=== PATIENT | female | born 1955 | race Caucasian/White ===

== ENCOUNTER 2024-05-18 17:45 | Outpatient (CLI) | payer MEDICARE, SELFPAY ==
--- NOTE | ~2024-05-18 | XR_ITS ---
EXAMINATION: XR knee RT 3V DATE: 05/18/2024 18:23 INDICATION: Right knee pain. TECHNIQUE: 3 views of right knee were obtained. COMPARISON: None. FINDINGS: Alignment is normal. No fracture. There is mild tricompartmental osteoarthritis. No knee dakota int effusion. IMPRESSION: 1. Mild right knee osteoarthritis. Reviewed, dictated and finalized at location A.
--- NOTE | ~2024-05-18 | XR_ITS ---
EXAMINATION: XR lumbar spine 2-3V DATE: 05/18/2024 18:23 INDICATION: Low back pain. TECHNIQUE: 3 views of lumbar spine were obtained. COMPARISON: None. FINDINGS: There is 22 degrees levoscoliosis of thoracolumbar spine. There is a transitional segment a t thoracolumbar junction that is designated S1. There is 3 mm retrolisthesis of T12 on L1 and L1 on L 2 and 3 mm anterolisthesis of L4 on L5 and L5 on S1. There is mild chronic anterior wedging of T11 ve rtebral body. There is moderately decreased disc height from T10-T11 through T12-L1 and mildly decrea sed disc height from L1-L2 through L5-S1. There is multilevel severe facet joint osteoarthritis. IMPRESSION: 1. Thoracolumbar levoscoliosis and moderate spondylosis. Reviewed, dictated and finalized at location A.
== END 2024-05-18 17:46 | disposition home or self-care (01) ==
PROVIDERS: PCP Internal Medicine; Visit Provider Internal Medicine
DX: M54.16 Radiculopathy, lumbar region (principal); M43.04 Spondylolysis, thoracic region; M17.11 Unilateral primary osteoarthritis, right knee
CPT/HCPCS: 72100; 73562

== ENCOUNTER 2024-06-03 07:15 | Outpatient (CLI) | payer MEDICARE, SELFPAY ==
--- NOTE | ~2024-06-03 | MR_ITS ---
MRI of the lumbar spine Clinical History: Back pain Technique: Axial T2-weighted images, and sagittal T1-weighted, T2-weighted, and T2 fat-sat images wer e acquired. Findings: There is no fracture of the lumbar spine. There is minimal grade 1 retrolisthesis of L1 ove r L2. No suspicious bone marrow signal abnormality seen. At L1-L2, there is minimal disc bulge and moderate facet arthropathy. There is minimal central canal stenosis. There is moderate right neural foraminal narrowing, and mild left neural foraminal narrowin g. At L2-L3, there is mild disc bulge and advanced facet arthropathy. No central canal stenosis or defin ite neural foraminal narrowing. At L3-L4, there is no significant disc bulge or herniation. There is advanced facet arthropathy. No c entral canal stenosis or neural foraminal narrowing. At L4-L5, there is no disc bulge or herniation. There is facet arthropathy. No central canal stenosis or neural foraminal narrowing. At L5-S1, there is no disc bulge or herniation. No spinal canal stenosis or definite neural foraminal narrowing. Paravertebral soft tissues are unremarkable. Impression: Mild degenerative spondylosis, as above. Reviewed, dictated and finalized at location . Impression: Mild degenerative spondylosis, as above.
== END 2024-06-03 07:16 | disposition home or self-care (01) ==
LOC: CHSIMG 07:17
PROVIDERS: PCP Internal Medicine; Visit Provider Internal Medicine
DX: M51.360 Other intervertebral disc degeneration, lumbar region with discogenic back pain only (principal); M48.07 Spinal stenosis, lumbosacral region; M43.06 Spondylolysis, lumbar region
CPT/HCPCS: 72148

== ENCOUNTER 2024-06-06 12:57 | Outpatient (CLI) | payer MEDICARE, SELFPAY ==
--- NOTE | ~2024-06-06 | XR_ITS ---
XR hip BI wo pelvis 06/06/2024 13:16 Indication: Hip pain Procedure: 2 views each hip Comparison: No prior studies for comparison. Findings: There is mild-moderate osteoarthritis of the hips. There is mild osteitis pubis. Sacral for amen are symmetric. No fracture or traumatic malalignment. Impression: 1: Bilateral mild-moderate osteoarthritis of the hips. Reviewed, dictated and finalized at location B. Impression: 1: Bilateral mild-moderate osteoarthritis of the hips.
== END 2024-06-06 12:58 | disposition home or self-care (01) ==
LOC: CHSIMG 12:59
PROVIDERS: PCP Internal Medicine; Visit Provider Internal Medicine
DX: M54.50 Low back pain, unspecified (principal); M25.552 Pain in left hip; M25.551 Pain in right hip; M16.0 Bilateral primary osteoarthritis of hip
CPT/HCPCS: 73521

== ENCOUNTER 2025-05-26 09:25 | Outpatient (CLI) | payer MEDICARE, SELFPAY ==
--- OUTSIDE RECORDS SUMMARY | 2011-03-20 07:11 | XMS_ITS | Continuity of Care Document ---
Author Organization [facility] Address [address] [address] Phone Care Team Providers Care Cupola Mechanic Name Role Phone Serg Betancur MD Unavailable Unavailable Medications Medication Instructions Dosage Effective Dates (start - stop) Status Comments Lortab 10 mg-500 mg Tab take 1 tablet by oral route every 4 hours as needed for pain - Active Xanax 1 mg Tab take 1 tablet (1MG) by oral route qd prn - Active zolpidem 10 mg Tab take 1 tablet (10MG) by oral route every day at bedtime prn - Active Procedures Procedure Date Office/outpatient Visit, Est Office/outpatient Visit, Est No Charge Subsequent Hospital Care Subsequent Hospital Care Subsequent Hospital Care Subsequent Hospital Care Biopsy Of Kidney Subsequent Hospital Care Subsequent Hospital Care Subsequent Hospital Care Subsequent Hospital Care Subsequent Hospital Care Initial Hospital Care Subsequent Hospital Care Subsequent Hospital Care Subsequent Hospital Care Advance Directives Directive Yes / No Effective Date File Name No Information Encounters Encounter Description Practice Location Reason(s) For Visit Diagnoses Date Provider Providers Copied on Encounter [facility], [address], [place], [address], [place] tel:[phone] [facility] No Information 1 Pipe Ulrich. [facility], [address], [place], [id number] , [place]. tel:[phone] [facility], [address], [place], [address], [place] tel:[phone] [facility] [place] No Information 1 Pipe Ulrich. [address] [place] [address], [address], [place], [place], [id number] , [place]. tel:[phone] Office/outpa tient Visit, Est [facility], [address], [place], [address], [place] tel:[phone] [facility] No Information 1 Pipe Ulrich. [address] [place] [address], [address], [place], [place], [id number] , [place]. tel:[phone] [facility], [address] [place], [place], [address], [place] tel:[phone] [facility] No Information 1 Min Lieberman. [address] [place] [address], [address], [place], [id number] , [place]. tel:[phone] Office/outpa tient Visit, Est [facility], [address], [place], [address], [place] tel:[phone] [facility] No Information 1 Dann Moreau. [address] [place] [address], [address], [place], [place], [id number] , [place]. tel:[phone] [facility], [address] [place], [place], [address], [place] tel:[phone] [facility] No Information 1 Pipe Ulrich. [address] [place] [address], [address], [place], [place], [id number] , [place]. tel:[phone] Referring Provider: Arnold MAYFIELD, [address] [place] [address] [address], [place], [address]. tel:[phone] Subsequent Hospital Care [facility], [address], [address], [place] tel:[phone] [facility] Acute Kidney Failure UnspAcute Kidney Failure Tubular NecrosisHypertensi on/Accelerated MaligDepressive Disorder Nov- 1 Pipe Ulrich. [address] [place] [address], [address], [place], [id number] , [place]. tel:[phone] Referring Provider: Sun Smallwood, [address] [place] [address] [address], [place], [place], [address]. tel:[phone] Subsequent Hospital Care [facility], [address] [place] [address], [address], [place] tel:[phone] [facility] Acute Kidney Failure Tubular NecrosisAnemia Iron DeficiencyAcute Kidney Failure UnspHypertension/A ccelerated MaligThrombocytope niaDehydrationDepr essive Disorder Nov- 1 Bernardo Petty. [address] [place] [address], [address], [place], [id number] , [place]. tel:[phone] Referring Provider: Sun Smallwood, [address] [place] [address] [address], [place], [place], [id number]. tel:[phone] Subsequent Hospital Care [facility], [address] [place] [address], [address], [place] tel:[phone] [facility] Acute Kidney Failure UnspAnemia Iron DeficiencyThromboc ytopeniaDepressive DisorderAcute Kidney Failure Tubular NecrosisHypertensi on/Accelerated Malig Nov- 1 Pipe Ulrich. [address] [place] [address], [address], [place], [address] , [place]. tel:[phone] Referring Provider: Sun Smallwood, [address] [place] [address] [address], [place], [place], [address]. tel:[phone] Subsequent Hospital Care [facility], [address], [place], [address], [place] tel:[phone] [facility] Acute Kidney Failure UnspAcute Kidney Failure Tubular NecrosisHypertensi on/Accelerated MaligDepressive Disorder 1 Pipe Ulrich. [address] [facility], [address], [place], [place], [address] , [place]. tel:[phone] Referring Provider: Sun Smallwood, [address] [place] [address] [address], [place], [place], [address]. tel:[phone] Family History Family Member Type Diagnosis Age At Onset No Information Payers Payer name Insurance type Covered constitution party ID Gurpreet mccabe(s) [facility] [employer] [facility] CI [id number] Social History Type Description Quantity Date Captured Comments Sex Female Smoking Status No Information Chief Complaint And Reason For Visit No Information History Of Present Illness Encounter Date Complaint History Of Prese nt Illness No Information Instructions Date Instruction Additional Infor mation No Information Assessments Type Assessment Date No Information
--- OUTSIDE RECORDS SUMMARY | 2024-04-27 10:00 | XMS_ITS ---
Author Organization [facility] Address [address] [place], [place] [id number] Care Team Providers Care Bag Sewer Name Role Phone SHIRA JONES Unavailable Unavailable WARD EID Unavailable [phone] REASON FOR VISIT *General care Encounters Encounter Location Date Provider Diagnosis [address] [id number] 04/27/2024 WARD EID Plan Of Treatment No Information Progress Notes * Lena PERKINSOB:1955 ([age] yo F)Acc No.[id number]:04/27/2024 Patient: Dana MERCADO Provider: Leroy EID :1955 A ge:68 Y S ex:Female Date:04/27/2024 Address:[address] Subjective: * Chief Complaints: * 1 . *General care. * Medical History: Objective: * Vitals: Assessment: Plan: * Treatment: * Billing Information: * Visit Code: * Procedure Codes: * Electronic signature of NIXON EID DPM on 05/26/2025 at 09:28 AM CDT Sign off status: Pending * Provider: Leroy EID Date: 0 04/27/2024 Generated for Essence dumont/Hayden/eThamzahitting on: 1 09:28 AM CDT
--- NOTE | ~2025-05-26 | MR_ITS ---
EXAMINATION: MR hip RT wo con DATE: 05/26/2025 10:31 INDICATION: Chronic right hip pain TECHNIQUE: Magnetic resonance imaging (MRI) of the right hip was performed without intravenous contrast. Sequences included full-field axial PD-weighted FS FSE and T1-weighted FSE, coronal of the pelvis with PD-weighted FS FSE, small field of view of the right hip with axial PD-weighted FS FSE, sagittal PD- weighted FS FSE and coronal PD weighted FS FSE. Additional radial T1-weighted FGR oriented orthogonal to the acetabular rim were obtained for evaluation of the labrum. COMPARISON: Hip and pelvis radiographs dated 06/06/2024 FINDINGS: Bones/labrum/cartilage: Actually visualized lumbar levocurvature with moderate spondylosis. No fracture, avascular necrosis or pathologic marrow replacing process. Moderate to severe right hip osteoarthritis with posterior and posterior superior predominant nonuniform joint space narrowing with deep chondral ulceration along both the acetabulum and femoral head with underlying subarticular cystlike change at the posterior inferior left acetabulum and subarticular edema-like signal changes at both sides of the superior to posterior superior aspect the joint space. Small marginal osteophytes along the femoral head. Degenerative tearing of the superolateral and posterior right acetabular labrum. The intervening posterior superior right acetabular labrum has been largely replaced by marginal osteophytes along the rim of the acetabulum. There is at least mild to moderate left hip osteoarthritis with likely high-grade chondromalacia with small regions of subarticular edema-like signal change at both sides of the central aspect the joint space and mild subarticular cystlike change at the anterosuperior left acetabulum. Evaluation of the left hip is however more limited on the larger dorkt-yo-cens images. Mild to moderate osteoarthritis at the bilateral sacroiliac joints. Fluid: Likely reactive moderate sized right right and small left hip joint effusions and/or synovitis. No free fluid in the pelvis. Soft tissues: Mild left-sided and moderate right-sided fatty atrophy of the bilateral gluteus minimus muscle bellies. There is mild fatty atrophy of the anterior right gluteus medius muscle belly. Proximal retraction of small portions of the bilateral gluteus medius myotendinous junctions consistent with partial thi ckness tears of the associated distal tendons. The bilateral iliopsoas and proximal hamstring tendons are normal. Small umbilical hernia containing there is fluid or small knuckle of nonobstructed bowel. Limited evaluation of visceral organs of the pelvis is otherwise unremarkable. No pathologically enlarged pelvic/inguinal lymphadenopathy. IMPRESSION: 1. Moderate to severe right hip osteoarthritis with likely chronic labral degeneration and likely reactive moderate sized right hip joint effusion and/or synovitis. 2. Less severe mild to moderate left hip osteoarthritis with small left hip joint effusion and/or synovitis on more limited evaluation on the larger cfpya-bc-mzrg imaging. 3. Partial tears of small portion of the bilateral gluteus medius tendons as evidenced by focal proximal retraction of portions of the myotendinous junctions 4. Small umbilical hernia containing other fluid or small knuckle of nonobstructed small bowel. Reviewed, dictated and finalized at location A. IMPRESSION: 1. Moderate to severe right hip osteoarthritis with likely chronic labral degen eration and likely reactive moderate sized right hip joint effusion and/or syno vitis. 2. Less severe mild to moderate left hip osteoarthritis with small left hip khadar nt effusion and/or synovitis on more limited evaluation on the larger field-of- view imaging. 3. Partial tears of small portion of the bilateral gluteus medius tendons as ev idenced by focal proximal retraction of portions of the myotendinous junctions 4. Small umbilical hernia containing other fluid or small knuckle of nonobstruc nicole small bowel.
--- OUTSIDE RECORDS SUMMARY | 2025-05-26 09:28 | XMS_ITS | Patient Health Record ---
Author Organization [facility] Address [address] [place], [place] [id number] Care Team Providers Care Amphibian Crewmember Name Role Phone SHIRA JONES Unavailable Unavailable Allergies No Known Allergies Reason For Referral No Information Plan Of Treatment No Information Insurance Providers Payer Name Payer Address Payer Phone Subscriber Number Group Number Insured Name Patient Relationship to Insured Coverage Start Date Coverage End Date [employer] [address] [place] [phone] [id number] Dana Glover Self - patient is the insured Medical (General) History Surgical History Surgery Date(Month/Year) Hernia Tubal Ligation
--- OUTSIDE RECORDS SUMMARY | 2025-05-26 09:28 | XMS_ITS | Clinical Summary ---
Author Organization [facility] Address Formerly [facility], [id number] [place] [address] Care Team Providers Care Products Mechanical Design Engineer Name Role Phone James Shirley MD Primary Care Provider [phone] Allergies No known active allergies Medications ondansetron (ZOFRAN-ODT) 4 MG disintegrating tablet Take 1 tablet (4 mg total) by mouth every 8 (eight) hours as needed for Nausea. 20 tablet 2 Active Active Problems Problem Noted Date Diagnosed Date Low back pain 12/01/2023 Immunizations Immunization Administration Dates Next Due Fluzone High Dose - >Age 65 (Prefilled Syringe) 06/15/2023,05/11/2022,05/19/2021 MODERNA COVID-19 (12+) MRNA, LNP-S, PF, 100 MCG/ 0.5 ML DOSE 06/25/2021,09/09/2020,08/12/2020 PFIZER COVID-19 BIVALENT (12 +) mRNA, LNP-S, PF, 30 MCG/0.3 ML DOSE 05/11/2022 Pneumococcal (Prevnar 13) 02/26/2020 Shingrix 10/03/2020,02/26/2020 Tdap (Adacel) 10/12/2017 Zoster (Zostavax) 88897 Unt/0.65Ml 01/22/2017 Social History Tobacco Use Types Packs/Day Years Used Date Smoking Tobacco: Former Cigarettes Smokeless Tobacco: Never Tobacco Cessation:Counseling Given: Not Answered Comments:Patient was a social smoker in [place]. Comments No Sex and Gender Information Value Date Recorded Sex Assigned at Not on file Legal Sex Female 5:45 PM [employer] Gender Identity Not on file Sexual Orientation Not on file Last Filed Vital Signs Vital Sign Reading Time Taken Comments Blood Pressure 171/68 09/29/2022 12:55 PM [employer]QU[employer] Pulse 52 09/29/2022 12:55 PM LIQUID SUGAR [employer]IER Temperature 36.1 C (96.9 F) 09/29/2022 12:55 PM LIQUID SUGAR FORTIFIER Respiratory Rate 18 09/29/2022 12:55 PM LIQUID SUGAR FORTIFIER Oxygen Saturation 100% 09/29/2022 12:55 PM LIQUID SUGAR FORTIFIER Inhaled Oxygen Concentration - - Weight 68.9 kg (152 lb) 09/22/2022 1:49 PM LIQUID SUGAR FORTIFIER Height 154.9 cm (5' 1) 09/22/2022 1:49 PM LIQUID SUGAR FORTIFIER Body Mass Index 28.72 09/22/2022 1:49 PM LIQUID SUGAR FORTIFIER Plan of Treatment Health Maintenance Due Date Last Done Comments Colorectal Cancer Screening Colonoscopy (10 Years) 1955 Hepatitis C 11/27/1973 Annual Medicare Wellness Visit 11/27/2020 Pneumococcal Vaccine: 50+ Years (2 of 2 - PPSV23) 02/25/2021 02/26/2020 COVID-19 Vaccine ( - season) 2025 05/11/2022, 06/25/2021, 09/09/2020, Additional history exists Influenza Adult (#1) 2025 06/15/2023, 05/11/2022, 05/19/2021 Mammogram Screening 12/20/2025 12/21/2023, 10/06/2022, 03/13/2020 DTaP, Tdap and Td Vaccines (2 - Td or Tdap) 10/12/2027 10/12/2017 RSV Immunization or 60+ Years (1 - 1-dose 75+ series) 11/27/2030 Zoster Vaccines Completed 10/03/2020, 02/13, 01/22/2017 Dexa Scan (General) Completed 12/21/2023 Meningococcal B Vaccine Aged Out No l onger eligible based on patient's age to complete this topic Meningococcal Vaccine Aged Out No ana shyam eligible based on patient's age to complete this topic RSV Immunizations Under 20 Months Aged Out No longer eligible based on patient's age to complete this topic Procedures Procedure Name Priority Date/Time Associated Diagnosis Comments MG SCREENING W WAYLON SHADI DIGI Routine 12/21/2023 10:14 AM CDT Visit for screening mammogram BONE DENSITY/DEXA Routine 12/21/2023 10: 03 AM CDT Post-menopause from Last 3 Months or Most Recently Relevant to Health Maintenance Results * MG SCREENING W WAYLON SHADI DIGI (12/21/2023 10:14 AM CDT) Anatomical Region Laterality Modality Breast Bilateral Mammography 12/21/2023 3:48 PM CDT Impressions 12/21/2023 3:49 PM CDT IMPRESSION: No suspicious change since the previous exams. Recommendation: 1: Routine Screening Bilateral in 1 Year Assessment: ACR BI-RADS 2 - BENIGN FINDING(S) Ordered By: JAZZ JONES Interpreted By: Emanuel Aggarwal MD, 12/21/2023 3:48 PM Narrative 12/21/2023 3:49 PM CDT Examination: Digital screening mammogram with CAD. Clinical history: Asymptomatic patient presents for routine screening. Comparison: 10/06/2022, 03/13/2020, 09/29/2018, 03/17/2017. Technique: Bilateral digital mammograms. The exam was interpreted with the use of a computer-aided detection (CAD) system. Additional 3-D tomosynthesis images were acquired. Tissue density: The breast tissue contains scattered fibroglandular densities. Findings: The breast tissue contains scattered fibroglandular densities. Benign-appearing calcification noted. No suspicious mass, microcalcification or area of architectural distortion can be identified. From a mammographic standpoint, routine followup in one year would seem adequate. us Jazz Jones APNP MAMMO Final Resul t * BONE DENSITY/DEXA (12/21/2023 10:03 AM CDT) Anatomical Region Laterality Modality Bone Bone Density 12/21/2023 11:2 1 AM CDT Impressions 12/21/2023 11:23 AM CDT Impression: 1. Within normal limits in the lumbar spine. 2. Consistent with osteopenia in both hips. Ordered By: JAZZ JONES Interpreted By: Emanuel Aggarwal MD, 12/21/2023 11:21 AM Narrative 12/21/2023 11:23 AM CDT Examination: DEXA Bone densitometry Clinical history: Postmenopausal. Osteoporosis screening. Comparison: None. Technique: DEXA bone mineral density evaluation was performed in the AP projection over the lumbar spine and over both hips in the AP projection utilizing standard imaging techniques. Assessment: The BMD measured at the AP spine L1-L4 is 1.201 g/cm2 with a T-score of 1.4 and a Z-score of 3.4. Bone density is up to 10% below young normal. This patient is considered normal according to the World Health Organization (WHO) criteria. Fracture risk is low. The BMD measured at the femur total left is 0.782 g/cm2 with a T-score of -1.3 and a Z-score of 0.1. The patient is considered osteopenic according to World Health Organization (WHO) criteria. Bone density is between 10 and 25% below young normal. Fracture risk is moderate. Treatment is advised. The BMD measured at the femur total right is 0.754 g/cm2 with a T-score of -1.5 and a Z-score of -0.2. The patient is considered osteopenic according to World Health Organization (WHO) criteria. Bone density is between 10 and 25% below young normal. Fracture risk is moderate. Treatment is advised. FRAX 10-year fracture risk: Major Osteoporotic Fracture: 8.0%. Hip Fracture: 0.6%. Recommendations: All patients should ensure an adequate intake of dietary calcium and vitamin D. The NOF recommend adults under the age of 50 need 1000 mg of calcium and 400-800 IU of vitamin D daily. Effective therapy for the prevention and treatment of osteoporosis include biphosphonates. Follow-up: People with diagnosed cases of osteoporosis or at high risk for fracture should have regular bone mineral density test. For patients eligible for Medicare, routine testing is allowed once every 2 years. Testing frequency can be increased to one year for patients who have rapidly progressing disease, those who are receiving or discontinuing medical therapy to restore bone mass, or have additional risk factors. Based on these results, a followup exam is recommended in two years. Procedure Note Emanuel Aggarwal MD - 05/07/2024 Examination: DEXA Bone densitometry Clinical history: Postmenopausal. Osteoporosis screening. Comparison: None. Technique: DEXA bone mineral density evaluation was performed in the APprojection over the lumbar spine and over both hips in the AP projectionutilizing standard imaging techniques. Assessment: The BMD measured at the AP spine L1-L4 is 1.201 g/cm2 with a T-score of1.4 and a Z-score of 3.4. Bone density is up to 10% below young normal.This patient is considered normal according to the World HealthOrganization (WHO) criteria. Fracture risk is low. The BMD measured at the femur total left is 0.782 g/cm2 with a T-score of-1.3 and a Z-score of 0.1. The patient is considered osteopenicaccording to World Health Organization (WHO) criteria. Bone density isbetween 10 and 25% below young normal. Fracture risk is moderate.Treatment is advised. The BMD measured at the femur total right is 0.754 g/cm2 with a T-score of-1.5 and a Z-score of -0.2. The patient is considered osteopenicaccording to World Health Organization (WHO) criteria. Bone density isbetween 10 and 25% below young normal. Fracture risk is moderate.Treatment is advised. FRAX 10-year fracture risk: Major Osteoporotic Fracture: 8.0%. Hip Fracture: 0.6%. Recommendations: All patients should ensure an adequate intake of dietary calcium andvitamin D. The NOF recommend adults under the age of 50 need 1000 mg ofcalcium and 400-800 IU of vitamin D daily. Effective therapy for theprevention and treatment of osteoporosis include biphosphonates. Follow-up: People with diagnosed cases of osteoporosis or at high risk for fractureshould have regular bone mineral density test. For patients eligible forMedicare, routine testing is allowed once every 2 years. Testing frequencycan be increased to one year for patients who have rapidly progressingdisease, those who are receiving or discontinuing medical therapy torestore bone mass, or have additional risk factors. Based on these results, a followup exam is recommended in two years. Impression: 1. Within normal limits in the lumbar spine. 2. Consistent with osteopenia in both hips. Ordered By: JAZZ JONES Interpreted By: Emanuel Aggarwal MD, 12/21/2023 11:21 AM us Jazz MAN Final Resul t from Last 3 Months or Most Recently Relevant to Health Maintenance Insurance [employer] MEDICARE Care Teams Products Mechanical Design Engineer Relationship Specialty Start Date End Date James Shirley MD [address] [place] [phone] PCP - General FAMILY PRACTICE 07/08/22
--- OUTSIDE RECORDS SUMMARY | 2025-05-26 09:28 | XMS_ITS | Clinical Summary ---
Author Organization [facility] Address [address] [place] [address] Care Team Providers Care Manager Retail Sales Name Role Phone Shashi Berry MD Primary Care Provider [phone] Allergies No known active allergies Medications No known medications Active Problems Problem Noted Date Diagnosed Date Tongue mass 05/25/2024 Assessment & Plan (05/25/2024 11:01 AM CDT): Excision of tongue mass with repair Risks and complications: Anesthesia, bleeding, infection, benign versus malignant pathology, recurrence of lesion, injury to arteries, nerves and veins, scarring and need for further treatment Social History Tobacco Use Types Packs/Day Years Used Date Smoking Tobacco: Never Assessed Comments Unknown Sex and Gender Information Value Date Recorded Sex Assigned at Not on file Legal Sex Female 8:18 AM CDT Gender Identity Not on file Sexual Orientation Not on file Obstetrics History Last Filed Vital Signs Vital Sign Reading Time Taken Comments Blood Pressure 155/79 05/25/2024 10:20 AM CDT Pulse 67 05/25/2024 10:20 AM CDT Temperature - - Respiratory Rate 18 05/25/2024 10:20 AM CDT Oxygen Saturation 97% 05/25/2024 10:20 AM CDT Inhaled Oxygen Concentration - - Weight 69.9 kg (154 lb) 05/25/2024 10:20 AM CDT Height 154.9 cm (5' 1) 05/25/2024 10:20 AM CDT Body Mass Index 29.1 05/25/2024 10:20 AM CDT Plan of Treatment Health Maintenance Due Date Last Done Comments Colon Cancer Screening-Colonoscopy 1955 Depression Screening 1955 Fall Risk Assessment 1955 Hepatitis C Screening 1955 Hepatitis B Screening 11/27/1973 Well Visit 65+ 11/27/2020 Breast Cancer Screening-Mammogram 12/20/2024 12/21/2023, 12/21/2023, 10/06/2022, Additional history exists Covid-19 Vaccine (5 - 2024-2 6 season) 2025 05/11/2022, 06/25/2021, 09/09/2020, Additional history exists Influenza Vaccine (#1) 2025 , 05/11/2022, 05/19/2021 Osteoporosis Screening-Bone Density Scan 12/20/2025 12/21/2023 DTaP/Tdap/Td Vaccine (2 - Td or Tdap) 10/12/2027 10/12/2017 Zoster Vaccine Completed 10/03/2020, 02/13, 01/22/2017 Pneumococcal vaccine 65+ Completed 03/15/2024, 02/13 Insurance [facility] Care Teams Manager Retail Sales Relationship Specialty Start Date End Date Shashi Berry MD PCP - General Internal Medicine 05/19/24
== END 2025-05-26 09:26 | disposition home or self-care (01) ==
LOC: CHSIMG 09:26
PROVIDERS: PCP Internal Medicine; Visit Provider Internal Medicine
DX: M25.551 Pain in right hip (principal); M16.0 Bilateral primary osteoarthritis of hip; S76.812A Strain of other specified muscles, fascia and tendons at thigh level, left thigh, initial encounter; S76.811A Strain of other specified muscles, fascia and tendons at thigh level, right thigh, initial encounter; K42.9 Umbilical hernia without obstruction or gangrene
CPT/HCPCS: 73721

== ENCOUNTER 2025-07-16 08:31 | Outpatient (CLI) | payer MEDICARE, SELFPAY ==
--- OUTSIDE RECORDS SUMMARY | 2025-07-16 08:56 | XMS_ITS | Clinical Summary ---
Author Organization [facility] Medical Office Building [address] Address [address] [place] [address] Care Team Providers Care Cherry Cutter Name Role Phone Shashi Berry MD Primary Care Provider [phone] Allergies No known active allergies Medications No [...] Pneumococcal vaccine 65+ Completed 03/15/2024, 02/13 [facility] Care Teams Cherry Cutter Relationship Specialty Start Date End Date Shashi Berry MD PCP - General Internal Medicine 05/19/24
--- OUTSIDE RECORDS SUMMARY | 2025-07-16 08:56 | XMS_ITS | Clinical Summary ---
Author Organization [facility] Address [address] [place] [address] Care Team Providers Care Check Cashier Name Role Phone James Shirley MD Primary Care Provider [phone] Allergies No known active allergies Medications ondansetron [...] Shingrix 10/03/2020,02/26/2020 Tdap (Adacel) 10/12/2017 Zoster (Zostavax) 77951 Unt/0.65Ml 01/22/2017 Social History Tobacco Use Types Packs/Day Years Used Date Smoking Tobacco: Former Cigarettes Smokeless Tobacco: Never Tobacco Cessation:Counseling Given: Not Answered Comments:Patient was a social smoker in [place]. Comments No Sex and Gender Information Value Date Recorded Sex Assigned at Not on file Legal Sex Female 5:45 PM WIRE BRUSH MAKER Gender Identity Not on file Sexual Orientation Not on file Last Filed Vital Signs Vital Sign Reading Time Taken Comments Blood Pressure 171/68 09/29/2022 12:55 PM WIRE BRUSH MAKER Pulse 52 09/29/2022 12:55 PM WIRE BRUSH MAKER Temperature 36.1 C (96.9 F) 09/29/2022 12:55 PM WIRE BRUSH MAKER Respiratory Rate 18 09/29/2022 12:55 PM WIRE BRUSH MAKER Oxygen Saturation 100% 09/29/2022 12:55 PM WIRE BRUSH MAKER Inhaled Oxygen Concentration - - Weight 68.9 kg (152 lb) 09/22/2022 1:49 PM WIRE BRUSH MAKER Height 154.9 cm (5' 1) 09/22/2022 1:49 PM WIRE BRUSH MAKER Body Mass Index 28.72 09/22/2022 1:49 PM WIRE BRUSH MAKER Plan of Treatment Health Maintenance Due Date Last Done Comments Colorectal Cancer Screening Colonoscopy (10 Years) 1955 Hepatitis C 11/27/1973 Annual Medicare Wellness Visit 11/27/2020 Pneumococcal Vaccine: 50+ Years (2 of 2 - PCV20 or PCV21) 02/25/2021 02/26/2020 COVID-19 Vaccine ( season) 2025 05/11/2022, 06/25/2021, 09/09/2020, Additional history exists Influenza Adult (#1) 2025 06/15/2023, 05/11/2022, 05/19/2021 Mammogram Screening 12/20/2025 12/21/2023, 10/06/2022, 03/13/2020 DTaP, Tdap and Td Vaccines (2 - Td or Tdap) 10/12/2027 10/12/2017 RSV Immunization or 60+ Years (1 - 1-dose 75+ series) 11/27/2030 Zoster Vaccines Completed 10/03/2020, 02/13, 01/22/2017 Dexa Scan (General) Completed 12/21/2023 Hepatitis A Vaccines Aged Out No long er eligible based on patient's age to complete this topic Meningococcal B Vaccine Aged Out No l [...] years. Procedure Note Emanuel Aggarwal MD - 12/21/2023 Examination: DEXA Bone densitometry Clinical history: Postmenopausal. [...] Aggarwal MD, 12/21/2023 11:21 AM us Jazz Jones APNP DEXA Final Resul t from Last 3 Months or Most Recently Relevant to Health Maintenance Insurance AETNA MEDICARE Care Teams Check Cashier Relationship Specialty Start Date End Date James Shirley MD [address] [place] [address] PCP - General FAMILY PRACTICE 07/08/22
--- OUTSIDE RECORDS SUMMARY | 2025-07-16 08:56 | XMS_ITS | Patient Health Record ---
Author Organization [facility] Address [address] [place], [place] [id number] Care Team Providers Care Cable Tender Name Role Phone SHIRA JONES Unavailable Unavailable Allergies No Known Allergies Reason For Referral No Information Plan Of Treatment No Information Insurance Providers Payer Name Payer Address Payer Phone Subscriber Number Group Number Insured Name Patient Relationship to Insured Coverage Start Date Coverage End Date Aetna [address] [place] [address] [id number] Dana Glover Self - patient is the insured Medical (General) History Surgical History Surgery Date(Month/Year) Hernia Tubal Ligation
--- NOTE | 2025-07-16 09:30 | ECG_ITS ---
Test Date: 2025-07-16 09:58:43 Measurements Intervals Waves Rate: 58 P: 4 KY: 153 QRS: 35 QRSD: 85 T: 69 QT: 414 QTc: 409 Interpretive Statements SINUS BRADYCARDIA CANNOT R/O SEPTAL INFARCT, AGE INDETERMINATE BASELINE ARTIFACT- I, II, III, AVR, AVL, AVF, V1-V6 ABNORMAL ECG No previous ECG available for comparison Electronically Signed On 07-16-2025 10:46:31 DOCK OPERATOR by Javier Albert D.O.
[2025-07-16 10:21] LABS: Hematocrit 40.1 % (37.0-47.0); Hemoglobin 12.7 g/dL (12.0-15.0); Immature Granulocyte Percent A 0.2 % (0-0.5); Lymphocytes Absolute Auto 1.02 K/mm3 (0.9-3.2); Mean Corpuscular HGB Conc 31.7 g/dl (32-36); Mean Corpuscular Hemoglobin 28.1 pg (26-34); Mean Corpuscular Volume 88.7 fl (80-100); Nucleated Red Blood Cells Absolute Auto 0.000 K/mm3 (0.0-0.012); Nucleated Red Blood Cells Perc 0.0 % (0.0-0.2); Platelet Count Result 216 k/mm3 (150-375); Red Blood Count 4.52 M/mm3 (4.2-5.4); White Blood Count 4.0 K/mm3 (4.5-10.0)
[2025-07-16 10:46] LABS: Hemoglobin A1C 5.1 % (<5.7)
[2025-07-16 10:47] LABS: Albumin Level 4.3 g/dL (3.5-5.1); Anion Gap 2 mmol/L (4-12); Blood Urea Nitrogen 16 mg/dL (7-17); Calcium 9.6 mg/dL (8.4-10.2); Carbon Dioxide 30 mmol/L (22-30); Chloride 106 mmol/L (98-107); Estimated Glomerular Filt Rate > 60; Glucose 83 mg/dL (65-110); Potassium 4.6 mmol/L (3.4-5.0); Sodium 138 mmol/L (137-145)
== END 2025-07-16 08:32 | disposition home or self-care (01) ==
LOC: ANHSURGERY 08:36
PROVIDERS: PCP Internal Medicine; Visit Provider Orthopaedic Surgery
DX: Z01.818 Encounter for other preprocedural examination (principal); M70.71 Other bursitis of hip, right hip
CPT/HCPCS: 80048; 80307; 82040; 83036; 85025; 87081; 93005

== ENCOUNTER 2025-07-30 09:12 | Outpatient (CLI) | payer MEDICARE, SELFPAY ==
--- NOTE | 2025-07-30 09:22 | EST_ITS ---
Patient Info Name: Dana Glover Age: 69 years : 1955 Gender: Female Ht: 61 in Wt: 159 lbs BSA: 1.79 m2 HR: 98 bpm BP: 146 / 78 mmHg Heart Rhythm: Sinus Rhythm Technical Quality: Good Exam Date: 07/30/2025 9:22 AM Patient Status: O Admit Date: 07/30/2025 Exam Type: CA stress naomy w NM A regadenoson stress test was performed. Staff Referring Physician: Shashi Berry MD Attending Provider: Shashi Berry MD Summary 1. 1. Negative lexiscan stress test for ischemic ST changes by ECG criteria. 2. 2. Baseline hypertension. 3. 3. Nuclear scan to follow and will be reported separately. Please correlate with it. Protocol: LEXISCAN Stress ECG Details Stage: REST Duration (min): 1 min : 35 sec HR (bpm): 71 SBP (mmHg): 146 DBP (mmHg): 78 Stage: REST Duration (min): 6 min : 47 sec HR (bpm): 65 SBP (mmHg): 146 DBP (mmHg): 78 Stage: STAGE 1 Duration (min): 0 min : 17 sec HR (bpm): 65 SBP (mmHg): 146 DBP (mmHg): 78 Stage: RECOVERY Duration (min): 0 min : 42 sec HR (bpm): 90 SBP (mmHg): 146 DBP (mmHg): 78 Stage: RECOVERY Duration (min): 1 min : 42 sec HR (bpm): 98 SBP (mmHg): 146 DBP (mmHg): 78 Stage: RECOVERY Duration (min): 2 min : 42 sec HR (bpm): 87 SBP (mmHg): 151 DBP (mmHg): 70 Stage: RECOVERY Duration (min): 3 min : 42 sec HR (bpm): 102 SBP (mmHg): 146 DBP (mmHg): 72 Stage: RECOVERY Duration (min): 4 min : 42 sec HR (bpm): 83 SBP (mmHg): 146 DBP (mmHg): 72 Stage: RECOVERY Duration (min): 5 min : 42 sec HR (bpm): 76 SBP (mmHg): 129 DBP (mmHg): 73 Stage: RECOVERY Duration (min): 6 min : 20 sec HR (bpm): 82 SBP (mmHg): 148 DBP (mmHg): 71 Rest HR: 65 bpm Peak HR: 109 bpm Rest Sys BP: 146 mmHg Peak Sys BP: 151 mmHg Max Pred HR: 151 bpm % Max Pred HR: 72 % Target HR: 128 bpm Max RPP: 16,459 bpm*mmHg BP Response: Normal blood pressure response Termination Reason: Completed Protocol Cardiac Symptoms: None Total Time: 0 min : 17 sec Rest Leiva BP: 78 mmHg Peak Leiva BP: 70 mmHg Total Dose: 0.4 mg Resting ECG Normal sinus rhythm. Stress ECG No abnormal ST/T wave changes. Arrhythmias No arrhythmias were observed during the examination. Report Signatures
--- NOTE | 2025-07-30 13:17 | WPDCARIOSTRE ---
Nuclear Stress Test INDICATIONS Indications: Preop PROCEDURE Procedure Performed: Myocardial Perf Spect-Multi Procedure: Patient underwent a lexiscan stress test and immediately was injected with 32.6 mCi of cardiolyte. Multiple tomographic images were obtained. These are of good quality. There is no perfusion defects with stress imaging. A separate resting images were obtained after patient was injected with 10.7 mCi of cardiolyte. Multiple tomographic images were obtained. These are of good quality. There is no perfusion defects with rest imaging. CONCLUSION Conclusion: 1. Normal myocardial perfusion imaging demonstrating no perfusion defects with stress or rest imaging. 2. No evidence of reversible ischemia. 3. Left ventriculogram demonstrates normal measured ejection fraction of 66% with no wall motion abnormalities. 4. TID score 0.96 is not elevated.
== END 2025-07-30 09:13 | disposition home or self-care (01) ==
LOC: CHSCARD 09:15
PROVIDERS: PCP Internal Medicine; Visit Provider Internal Medicine
DX: Z01.818 Encounter for other preprocedural examination (principal); R94.31 Abnormal electrocardiogram [ECG] [EKG]
CPT/HCPCS: 78452; 93017; A9502; J2785

== ENCOUNTER 2025-08-06 00:25 | Day surgery (SDC) | payer MEDICARE, SELFPAY ==
[2025-07-16 08:56] VITALS: BP 132/78; PULSE 64; RESP 16; TEMP 36.4; O2SAT 100; BMI 30.8
--- NOTE | 2025-07-16 09:13 | PC.NURSE ---
[facility] has started construction of its new state of the art ER which will open Spring 2026. With this, we anticipate parking may be a challenge for some our surgical patients and families. Parking spaces are limited but are available for all Surgical, obstetrics, and ER patients sharing this lot. If you arrive and find you are having a hard time finding a parking space, please note that we understand the challenges, please drive around the hospital and park near Hospital Entrance 1. When you enter this entrance, you can ask a volunteer to direct or take you back to the surgical waiting area to check in. We appreciate everyone?s understanding of these expected challenges while we build for your future. Report to the Outpatient Waiting Room, entrance under the green pavilion located off [address], at time ___06:00am____ on date _08/06/25 . Planned Procedure Time: _07:30am .? Time changes happen often and if your time is changed the preop area will call you the afternoon before. - You and your visitor will be asked to self-screen and do not enter if you have any COVID symptoms. Please call surgeon if you need to reschedule. - A mask is optional within the hospital at this time. Patients may have clear liquids (water, carbonated beverages, clear teas, apple juice) until 3 hours prior to surgery with a maximum of 20 ounces. - No food from midnight until time of surgery and no smoking, or chewing tobacco (or any form of nicotine). No chewing gum, candy or mints. (04:30am) Take only the following medications with a SIP of water on the morning of surgery: ____NONE DO NOT STOP ANY OF YOUR OTHER PRESCRIPTION MEDICATIONS PRIOR TO SURGERY EXCEPT THE FOLLOWING Hold all vitamins and supplements for 3 days per anesthesiologist. Medications to discontinue per physician HOLD MELOXICAM, NSAIDS, ASPIRIN for [address] Segovia Date to take last dose 07/29/25 Please no make-up, nail welsh, hairspray, perfume, deodorant, or body powder the day of surgery.? No jewelry (including any body piercings) or valuables the day of surgery, leave them at home.? Please take a shower or bath the night before, or the morning of, surgery with an antibacterial soap.? Wear comfortable, loose fitting clothing. HIBICLEANSE Scrub as instructed Bring overnight bag , tennis shoes, walker and anything else you want here. - Jewelry must be removed prior to entering the operating room.? Rings and piercings that are not removed may be cut off. - The hospital will not accept responsibility for valuables.? - Please leave all valuables, including medications, at home the day of surgery. If you are going home after surgery, a licensed hammer driver must drive you home.? - NO public transportation without another adult if you receive anesthesia. - We recommend that an adult stay with you for 24 hours following discharge. - We also recommend that you do not drive, make important decision, drink alcoholic beverages, or take any drugs that were not prescribed by your health care provider for at least 24 hours after your discharge time. Follow any additional instructions given to you from your surgeon. Telephone instructions given to __Patient and asked if any additional questions and then verbalized understanding. Patient advised to call surgeon office or pre surgery nurse liaison [phone] if any additional questions.
--- NOTE | 2025-08-03 11:19 | PM.IMHP2 ---
H&P: HPI History of Present Illness Date/Time: 08/03/25 11:19 Chief Complaint: DJD right hip Narrative: 69-year-old female who presents today for a right anterior total hip arthroplasty. Patient has been having symptoms in the right hip that have been progressively worsening over the course the last year. She has moderately severe type 2 osteoarthritis in the hip. Recent x-rays has shown an apparent fractured osteophyte of the superior lateral rim of the acetabulum, which is new from x-rays that were done in May. Patient has been on meloxicam 15 mg daily but continues to have rather severe symptoms in the groin and anterior lateral hip. Patient has reached a point where she would like to proceed with total hip arthroplasty rather than continuing nonsurgical treatment. Physical exam: 69-year-old female alert pleasant. BMI is 30.8. She has about a 10 degree flexion contracture of the right hip flexes to 100? both positions cause diffuse posterior lateral and anterior lateral hip pain. Internal rotation 20? external rotation of 30? with the same pain. Stinchfield maneuver has minimal pain. She has minimal weakness to abductor testing in lateral position. Mild tenderness over the greater trochanter. Skin around the hip and groin crease all look normal. No edema in lower extremity. 2+ dorsalis pedis and posterior tibial artery pulse palpable. X-rays: X-rays demonstrate moderately severe narrowing of the medial joint space of the right hip and moderately severe narrowing of the posterior joint line on the lateral view. There also appears to be fractured osteophyte off the superior lateral rim of the acetabulum which is relatively new. Impression: 69-year-old female has moderately severe osteoarthritis of the right hip with rather severe symptoms on a daily basis. Patient has had to allow the cane real time trader recently due to the pain. She has significant flexion contracture in the hip and limited motion as well. Patient feels at this point her symptoms are severe enough that she would rather proceed with total hip arthroplasty rather than continue nonsurgical treatment. Surgical procedures well as the risks and complications were discussed in detail all questions were answered we will proceed. Patient will see her primary care doctor for pre-surgical clearance. She will stop her meloxicam 1 week prior to surgery. She will see her primary care doctor for pre-surgical clearance. Nasal swab was negative. Hemoglobin 12.7 and platelets are 216. Chem panel was all within normal limits creatinine 0.66. Review of Systems Review of Systems: All systems reviewed & are unremarkable except as noted in HPI and below PMFSH Past Medical History Medical History (Updated 07/17/25 @ 11:35 by Brock Miller MD) Arthritis Surgical History Surgical History (Updated 07/03/25 @ 13:17 by Julia Hsu [facility]) History of umbilical hernia 1992 H/O tubal ligation 1980 Family History Family History Father Alcoholism Diabetes mellitus Mother Dementia Grandparent Dementia Social History Social History (Updated 07/03/25 @ 13:15 by Rhonda Tyler [facility]) Smoking status: Never smoker Alcohol intake: never Substance use: never Lack of Transportation: No Lack of Food: Never True Current Housing: I Have Housing Concerned About Future Housing: No Difficulty Paying Gas/Electric Bills: No Difficulty Paying for Meds: No Currently Unemployed: No Education: High School Diploma/GED Difficulty w/ Childcare or Family Care: No Living arrangements: with family Additional living arrangements comments: Spiritual care concerns: No Meds Home Medications and Allergies Home Medications ?Medication ?Instructions ?Recorded ?Confirmed ?Type ferrous sulfate 325 mg (65 mg 325 mg PO DAILY 07/26/24 07/16/25 History iron) tablet (See-Time) meloxicam 15 mg tablet 15 mg PO DAILY 07/26/24 07/16/25 History cholecalciferol (vitamin D3) 25 25 mcg PO DAILY 07/16/25 07/16/25 History mcg (1,000 unit) capsule Allergies Allergy/AdvReac Type Severity Reaction Status Date / Time No Known Allergies Allergy Verified 07/16/25 08:54 Exam Resp: Auscultation: clear to auscultation bilaterally Cardio: Rate: regular rate Rhythm: regular rhythm
[2025-08-06] VITALS (14 sets, daily range): BP systolic 110–152; BP diastolic 50–94; PULSE 57–86; RESP 11–18; TEMP 36–36.6; O2SAT 93–100
--- NOTE | ~2025-08-06 | XR_ITS ---
EXAMINATION: XR surgery orthopedic, XR hip RT 1V w AP pelvis DATE: 08/06/2025 11:32 INDICATION: Right hip arthroplasty TECHNIQUE: Single intraoperative AP view of the right hip and 2 views of the right hip postoperatively FINDINGS: There is a right total hip arthroplasty in expected position. Subcutaneous gas with soft tissue swelling are consistent with recent surgery. IMPRESSION: 1. Recent right total hip arthroplasty. Reviewed, dictated and finalized at location O. RONMENTAL JOURNALIST IMPRESSION: 1. Recent right total hip arthroplasty.
--- OUTSIDE RECORDS SUMMARY | 2025-08-06 00:28 | XMS_ITS | Clinical Summary ---
Author Organization [facility] Medical Office Building [address] Address [address] [place] [address] Care Team Providers Care Print Color Matcher Name Role Phone Shashi Berry MD Primary Care Provider [phone] Allergies No known active allergies Medications No [...] Pneumococcal vaccine 65+ Completed 03/15/2024, 02/13 [facility] Care Teams Print Color Matcher Relationship Specialty Start Date End Date Shashi Berry MD PCP - General Internal Medicine 05/19/24
--- OUTSIDE RECORDS SUMMARY | 2025-08-06 00:28 | XMS_ITS | Clinical Summary ---
Author Organization [facility] Address [address] [place] [address] Care Team Providers Care Probate Judge Name Role Phone James Shirley MD Primary Care Provider [phone] Allergies No known active allergies Medications ondansetron [...] Shingrix 10/03/2020,02/26/2020 Tdap (Adacel) 10/12/2017 Zoster (Zostavax) 23757 Unt/0.65Ml 01/22/2017 Social History Tobacco Use Types Packs/Day Years Used Date Smoking Tobacco: Former Cigarettes Smokeless Tobacco: Never Tobacco Cessation:Counseling Given: Not Answered Comments:Patient was a social smoker in [employer]. Comments No Sex and Gender Information Value Date Recorded Sex Assigned at Not on file Legal Sex Female 5:45 PM ADULT BASIC EDUCATION MANAGER Gender Identity Not on file Sexual Orientation Not on file Last Filed Vital Signs Vital Sign Reading Time Taken Comments Blood Pressure 171/68 09/29/2022 12:55 PM ADULT BASIC EDUCATION MANAGER Pulse 52 09/29/2022 12:55 PM ADULT BASIC EDUCATION MANAGER Temperature 36.1 C (96.9 F) 09/29/2022 12:55 PM ADULT BASIC EDUCATION MANAGER Respiratory Rate 18 09/29/2022 12:55 PM ADULT BASIC EDUCATION MANAGER Oxygen Saturation 100% 09/29/2022 12:55 PM ADULT BASIC EDUCATION MANAGER Inhaled Oxygen Concentration - - Weight 68.9 kg (152 lb) 09/22/2022 1:49 PM ADULT BASIC EDUCATION MANAGER Height 154.9 cm (5' 1) 09/22/2022 1:49 PM ADULT BASIC EDUCATION MANAGER Body Mass Index 28.72 09/22/2022 1:49 PM ADULT BASIC EDUCATION MANAGER Plan of Treatment Health Maintenance Due Date [...] Health Maintenance Insurance AETNA MEDICARE Care Teams Probate Judge Relationship Specialty Start Date End Date James Shirley MD [address] [place] [phone] PCP - General FAMILY PRACTICE 07/08/22
--- OUTSIDE RECORDS SUMMARY | 2025-08-06 00:28 | XMS_ITS | Patient Health Record ---
Author Organization [facility] Address [address] [place], [place] [id number] Care Team Providers Care Green Chain Offbearer Name Role Phone SHIRA JONES Unavailable Unavailable Allergies No Known Allergies Reason For Referral No Information Plan Of Treatment No Information Insurance Providers Payer Name Payer Address Payer Phone Subscriber Number Group Number Insured Name Patient Relationship to Insured Coverage Start Date Coverage End Date Aetna [address] [place] [address] [id number] Dana Glover Self - patient is the insured Medical (General) History Surgical History Surgery Date(Month/Year) Hernia Tubal Ligation
[2025-08-06] MEDS: ACETAMINOPHEN 500 MG TABLET 1000 MG PO (06:20)
[2025-08-06] MEDS: LACTATED RINGERS 1,000 ML 30 ML IV CONT ×2 (06:25→11:37)
[2025-08-06] MEDS: TRANEXAMIC ACID 1,000MG/ISO100 1,000 MG/100 ML BAG 200 MG IVPB (06:25)
[2025-08-06] MEDS: VANCOMYCIN HCL 1,000 MG in SODIUM CHLORIDE 0.9% IV 250 ML 250 MG IVPB ×2 (06:30→18:49)
--- NOTE | 2025-08-06 07:07 | WPDHPUPDATE1 ---
History and Physical Update Update Date/Time: 08/06/25 07:07 History and Physical has been reviewed, including an updated exam of the patient. There are NO changes in the patient's condition. Risks, benefits, and alternatives have been discussed and questions answered. Patient agrees to proceed with procedure.
--- NOTE | 2025-08-06 07:25 | WPDANESEPPF ---
Anes - Initial Pre Proc Eval Procedure: Operation Date: 08/06/25 07:30 Proposed Procedures p Right Total Hip Arthroplasty, Anterior Approach - Brock Miller MD Date/Time: 08/06/25 07:25 Surgeon: Brock Miller MD Pre Op Diagnosis: O A Rt Hip Patient Data Age: 69 Gender: F Height: 1.52 m Weight: 71.8 kg Last Vital Signs Temp 97.1 F L 08/06/25 05:58 Pulse 71 08/06/25 05:58 Resp 16 08/06/25 05:58 BP 152/94 H 08/06/25 05:58 Pulse Ox 98 08/06/25 05:58 O2 Del Method Room Air 08/06/25 05:58 Allergies Allergy/AdvReac Type Severity Reaction Status Date / Time No Known Allergies Allergy Verified 07/16/25 08:54 Home Medications ?Medication ?Instructions ?Recorded ?Confirmed ?Type ferrous sulfate 325 mg (65 mg 325 mg PO DAILY 07/26/24 07/16/25 History iron) tablet (See-Time) meloxicam 15 mg tablet 15 mg PO DAILY 07/26/24 07/16/25 History cholecalciferol (vitamin D3) 25 25 mcg PO DAILY 07/16/25 07/16/25 History mcg (1,000 unit) capsule Laboratory Tests 08/06/25 06:21 Blood Type O Positive Antibody Screen Pending Patient hx anesthesia problems: none Family hx anesthesia problems: none Results Review: All pre-operative results and documents have been reviewed as part of the pre-operative evaluation. [facility] Past Medical History Medical History (Updated 07/17/25 @ 11:35 by Brock Miller MD) Arthritis Surgical History Surgical History (Updated 07/03/25 @ 13:17 by Julia Hsu CMA) History of umbilical hernia 1992 H/O tubal ligation 1980 Family History Family History Father Alcoholism Diabetes mellitus Mother Dementia Grandparent Dementia Social History Social History (Updated 07/03/25 @ 13:15 by Rhonda Tyler CMA) Smoking status: Never smoker Alcohol intake: never Substance use: never Lack of Transportation: No Lack of Food: Never True Current Housing: I Have Housing Concerned About Future Housing: No Difficulty Paying Gas/Electric Bills: No Difficulty Paying for Meds: No Currently Unemployed: No Education: High School Diploma/GED Difficulty w/ Childcare or Family Care: No Living arrangements: with family Additional living arrangements comments: Spiritual care concerns: No Anes - Eval Final PreProcedure Day of Procedure 08/06/25 07:25 Patient weight: obese Heart: regular rate and rhythm Lungs: clear to auscultation Airway: Mallampati scale class II Neurological: alert and oriented Last oral intake: >/= 8 hours ASA classification: II Emergent: no Anesthetic plan: proceed Anesthesia type and monitoring: general ETT and standard monitoring Results Review: All pre-operative results and documents have been reviewed as part of the pre-operative evaluation. Informed Consent: The patient's anesthetic plan and its attendant risks and benefits were discussed with the patient/family/POA. Questions were solicited and answers provided to the satisfaction of the patient/family/POA.
[2025-08-06] MEDS: ceFAZolin 2 GM in SODIUM CHLORIDE 0.9% IV 50 ML 100 ML IVPB ×3 (07:41→23:58)
[2025-08-06] MEDS: SODIUM CHLORIDE 0.9% IV 37.7 ML, MORPHINE SULFATE INJ (*CRX) 2 MG, ROPivacaine HCL 1% 2... INFILTRATE (08:28)
[2025-08-06] MEDS: TRANEXAMIC ACID 1,000 MG/10 ML AMPUL 1000 MG IV PUSH (10:44)
[2025-08-06] MEDS: KETOROLAC 15 MG/ML VIAL (*BKC) IV PUSH (11:08)
--- NOTE | 2025-08-06 11:23 | P.OP_ITS ---
Procedure Note - Detailed Date of Procedure 08/06/25 Pre-op Diagnosis O A Rt Hip Post-op Diagnosis Same Procedure Performed Right total hip arthroplasty direct anterior approach Surgeon Brock Miller MD Medical Education Specialist Suha Anesthesia General Description of Procedure Patient was brought to the operating room and general anesthesia was administered. She received 2 g of Ancef weight based vancomycin 1 g of TXA preoperatively. Grimes catheter was placed. The feet were padded and boots ap plied SCDs applied and running during the procedure. She was transferred to the [facility] table in the right hip prepped draped usual fashion. A 10 cm longitudinal incision was made starting 3 cm lateral to the ASIS. Dissection was carried down to the fascia over the tensor fascia manan which was longitudinally incised and elevated off the anterior 50% of the TFL muscle. Interval between TFL and rectus femoris developed. Crossing branches of ascending lateral femoral circumflex vessels were ligated with suture divided. Retractor was placed anteromedial to the capsule hip abducted internally rotated the gluteus minimus elevated off the lateral capsule. Inverted T capsulotomy performed. Femoral neck osteotomy was made according to preoperative templating. Her hip was quite tight due to chronic flexion contracture and short femoral neck the the therefore a napkin ring bone was removed from the femoral neck which facilitated femoral head removed without difficulty which measured 48 mm diameter. It was much from shaped due to the large peripheral osteophytes. The acetabulum was exposed. The ununited posterior superior fractured acetabular osteophyte was identified and removed. The femoral neck was assessed under fluoro and I elected to remove another 3 mm of femoral neck medially for improved exposure. The acetabulum was exposed and medialized with a 42 Reamer and reaming commenced and at 46 we did trial and I did not feel the trial was tight enough. Therefore we reamed to a 48. Trial was snug. We chose the size 48 emphasis cup which had 48.5 mm diameter and this was impacted and fully seated with a snug fit at 40? of abduction and appropriate anteversion so that the anterior shell was 1-2 mm under the anterior rim of the acetabulum. Single screw was placed in the ilium. Acetabular liner was fully seated. It was noteworthy that the cancellous bone of the acetabulum had severe diffuse bleeding which finally stopped with the impaction of the polyethylene liner. The table hook was inserted hip externally rotated extended knee. Interval between conjoined tendon piriformis incised which allowed the conjoined tendon to recess. This gave adequate exposure. On entry of the canal with the smooth all we again noted prominent marrow bleeding which did subside during the broaching fortunately. We broached up to a size 5 which gave appropriate torsional stability. This was inserted to the anticipated depth and we trialed with the 1.5 head. Under fluoroscopy I felt this under created the offset the the and we were a bit 2 mm 2 mm longer than the other side. We had appropriate stability. We calcar planed and countersunk the broach another 4-5 mm and trialed with the size 5 broach standard offset +5 head and this gave us equal leg lengths and offset was appropriate appropriate stability. Calcar planing was completed. The size 5 Actis stem standard offset was seated fully without complication and on read trialing with a +5 head we had appropriate soft tissue stability. The +5 ceramic by 36 mm femoral head was impacted on the clean and dried trunnion after thorough irrigation with Ancef solution. Hip reduced stability reconfirmed. Intraoperative x-ray with fluoro showed no radiographic complication. Superior limb of the capsulotomy approximated with number 2. Vicryl. Complete hemostasis was confirmed. The Cell Saver estimated total blood loss as 1400 cc and she received 750 back is Cell Saver. The vast majority of this was bleeding from the reamed acetabular cancellous bone. She received 2 additional g of Ancef and 1 g of TXA at the time wound closure. The fascia was closed with running 1. Vicryl. Drain placed deep in the subcu. Skin closed with 2 subcu Vicryl and glue. She was transferred postop recovery in good condition. Her bone quality was sufficient to allow weight-bearing as tolerated. [facility] Billing Surgery - Charge Forward: Surgery Billing (Right total hip arthroplasty)
--- NOTE | 2025-08-06 11:38 | PM.OP ---
Procedure Note - Brief Procedure Note - Brief Date of procedure: 08/06/25 O A Rt Hip Procedure performed: Right anterior total hip arthroplasty Surgeon: Keny Borden PA-C Findings: 69 year old female underwent right anterior total hip arthroplasty on 08/06. I was involved in the procedure including positioning the patient on the OR table in 1st assisting through the time of surgery. Total time spent was 3 and half hours
[2025-08-06] MEDS: fentaNYL CITRATE INJ (*CRX) 100 MCG/2 ML VIAL 25 MCG IV PUSH ×4 (11:44→11:57)
--- NOTE | 2025-08-06 13:29 | ADMGEN ---
This patient, Dana Glover, was admitted to [facility] Surg Room 305-02. Patient/family oriented to hospital policies and general routines including ID bracelet, bed and alarms, visiting hours, pain management, procedures, bathroom and other care routines, personal items, smoking policy, room service/diet, and visiting hours. Information on how to activate the Rapid Response Team has been discussed. Patient/Family are encouraged to report perceived risks to care and to ask questions if they do not understand what they are told or what they should do.
[2025-08-06] MEDS: ONDANSETRON INJ 4 MG/2 ML VIAL IV PUSH ×2 (13:44→20:44)
--- NOTE | 2025-08-06 13:56 | P.CONIM_ITS ---
Assessment and Plan Assessment and plan (1) Osteoarthritis of right hip: Code(s): M16.11 - Unilateral primary osteoarthritis, right hip Status: Acute Assessment and Plan: Status post total hip replacement by Orthopedics on 08/06/2025 Eliquis Pain management per Ortho Postop antibiotics PT OT eval Regular diet Time Spent with Patient Time with patient: less than 45 minutes HPI Date of Consult Consult date: 08/06/25 Requesting Physician: Brock Miller MD Primary Care Provider: Shashi Berry MD Consult Narrative Reason for consult: Medical management Narrative: Dana Glover is a 69 year old female with right hip arthritis presents the hospital for a planned right anterior total hip arthroplasty by Orthopedics. Hospitalist team was consulted for medical management. Patient seen after surgery. Patient states that her pain is controlled and she was able to the eat and drink after surgery. She states that she did not have any postop nausea for vomiting. She has no complaints at this time. Review of Systems 2 Review of Systems: 12 systems were reviewed and are negativ e except for as per HPI. [facility] Past Medical History Medical History (Updated 08/06/25 @ 18:11 by Nel Garcia APRN) Arthritis Surgical History Surgical History (Updated 07/03/25 @ 13:17 by Julia Hsu [facility]) History of umbilical hernia 1992 H/O tubal ligation 1980 Family History Family History Father Alcoholism Diabetes mellitus Mother Dementia Grandparent Dementia Social History Social History (Updated 07/03/25 @ 13:15 by Rhonda Tyler [facility]) Smoking status: Never smoker Alcohol intake: never Substance use: never Substance use type: does not use Lack of Transportation: No Lack of Food: Never True Current Housing: I Have Housing Concerned About Future Housing: No Difficulty Paying Gas/Electric Bills: No Difficulty Paying for Meds: No Currently Unemployed: No Education: High School Diploma/GED Difficulty w/ Childcare or Family Care: No Living arrangements: with family Additional living arrangements comments: Spiritual care concerns: No Meds Home Medications and Allergies Home Medications ?Medication ?Instructions ?Recorded ?Confirmed ?Type ferrous sulfate 325 mg (65 mg 325 mg PO DAILY 07/26/24 08/06/25 History iron) tablet (See-Time) meloxicam 15 mg tablet 15 mg PO DAILY 07/26/2407/17 History cholecalciferol (vitamin D3) 25 25 mcg PO DAILY 08/06/25 History mcg (1,000 unit) capsule Allergies Allergy/AdvReac Type Severity Reaction Status Date / Time No Known Allergies Allergy Verified 08/06/25 13:31 Vital Signs Vital Signs - 24 hr 08/06/25 05:58 08/06/25 11:29 08/06/25 11:30 Temperature 97.1 F L 97.5 F L Pulse Rate 71 80 83 Respiratory Rate 16 11 L 17 Blood Pressure 152/94 H 132/64 131/72 Pulse Oximetry 98 99 99 Oxygen Delivery Room Air Simple Face Mask Simple Face Mask Oxygen Flow Rate 8 8 08/06/25 11:45 08/06/25 12:00 08/06/25 12:15 Temperature Pulse Rate 86 81 60 Respiratory Rate 18 16 Blood Pressure 135/69 126/83 130/73 Pulse Oximetry 100 96 Oxygen Delivery Simple Face Mask Room Air Room Air Oxygen Flow Rate 8 08/06/25 12:30 08/06/25 13:53 Temperature Pulse Rate 61 Respiratory Rate 12 Blood Pressure 123/69 Pulse Oximetry 93 93 Oxygen Delivery Room Air Room Air Oxygen Flow Rate Exam 2 Narrative: General: well appearing, appears stated age. HEENT: normocephalic, atraumatic. Mucous membranes moist. EOMI, PERRLA, bilateral sclera anicteric, no conjunctival injection. Neck supple without JVD, lymphadenopathy, or bruit. Respiratory: clear bilaterally. No rales/rhonic/wheezes. Cardiovascular: Regular rate and rhythm, normal S1-S2. No murmurs, rubs, or clicks. PMI is nondisplaced, capillary refill less than 3 second. Abdomen: Soft, round, no pulsatile masses, nondistended and nontender. No rebound, no guarding. Bowel sounds present to all four quadrants. No high pitch or tinkling sounds, resonant to percussion. Extremities: No cyanosis, clubbing, or edema present. Pulses are palpable 2/2. Right lower extremity with surgical dressing clean dry intact, Hemovac Neuro: Alert and orientated x 4. PERRLA. Cranial nerves 2-12 intact without focal deficit. Skin: Warm, dry, and intact, without rash, erythema, or lesion. Psych: pleasant, cooperative, normal speech, normal affect, no hallucinations, no dysarthia Results Labs 08/06/25 18:21 Quality VTE Prophylaxis VTE prophylaxis: mechanical ordered Hospitalist [facility] Advance Care Plan I have confirmed that the patient's Advanced Care Plan is present, code status is documented, or surrogate decision maker is listed in patient medical record.: Yes Medication Reconciliation I have utilized all available resources to obtain, update and review the patients current medications (includes all prescriptions, OTC, herbals, cannabis, and nutritional supplements).: Yes
[2025-08-06] MEDS: SODIUM CHLORIDE 0.9% IV 1,000 ML 125 ML IV CONT (14:42)
--- NOTE | 2025-08-06 14:57 | PCPTNOTE ---
Attempted PT evaluation, pt refused to due to nausea. Nursing aware. Will follow.
--- NOTE | 2025-08-06 14:58 | PCOTNOTE ---
Attempted to see for OT evaluation however pt is not feeling well enough to participate at this time. Will continue to follow.
[2025-08-06] MEDS: KETOROLAC 15 MG/ML VIAL (*BKC) 7.5 MG IV PUSH ×2 (17:34→23:50)
[2025-08-06] MEDS: ACETAMINOPHEN 325 MG TABLET 650 MG PO ×2 (17:36→20:31)
[2025-08-06] MEDS: oxyCODONE HCL (*CRX) 5 MG TAB IR PO ×2 (17:37→20:34)
[2025-08-06 18:26] LABS: Hematocrit 33.5 % (37.0-47.0); Hemoglobin 10.8 g/dL (12.0-15.0); Mean Corpuscular HGB Conc 32.2 g/dl (32-36); Mean Corpuscular Hemoglobin 28.3 pg (26-34); Mean Corpuscular Volume 87.9 fl (80-100); Platelet Count Result 133 k/mm3 (150-375); Red Blood Count 3.81 M/mm3 (4.2-5.4); White Blood Count 8.8 K/mm3 (4.5-10.0)
[2025-08-06] MEDS: FAMOTIDINE 20 MG TABLET PO (20:31)
[2025-08-07 00:18] VITALS: BP 115/57; PULSE 65; RESP 18; TEMP 36.1; O2SAT 99
[2025-08-07] MEDS: SODIUM CHLORIDE 0.9% IV 1,000 ML 125 ML IV CONT (00:31)
[2025-08-07] MEDS: ACETAMINOPHEN 325 MG TABLET 650 MG PO ×4 (00:32→12:34)
[2025-08-07] MEDS: oxyCODONE HCL (*CRX) 5 MG TAB IR PO ×4 (00:32→12:34)
[2025-08-07 04:50] VITALS: BP 108/42; PULSE 62; RESP 18; TEMP 36.2; O2SAT 100
[2025-08-07 05:56] LABS: Hematocrit 28.0 % (37.0-47.0); Hemoglobin 8.8 g/dL (12.0-15.0); Immature Granulocyte Percent A 0.3 % (0-0.5); Immature Platelet Fraction Pct 3.1 % (0.9-11.2); Lymphocytes Absolute Auto 0.80 K/mm3 (0.9-3.2); Mean Corpuscular HGB Conc 31.4 g/dl (32-36); Mean Corpuscular Hemoglobin 28.1 pg (26-34); Mean Corpuscular Volume 89.5 fl (80-100); Nucleated Red Blood Cells Absolute Auto 0.000 K/mm3 (0.0-0.012); Nucleated Red Blood Cells Perc 0.0 % (0.0-0.2); Platelet Count Result 146 k/mm3 (150-375); Red Blood Count 3.13 M/mm3 (4.2-5.4); White Blood Count 8.6 K/mm3 (4.5-10.0)
[2025-08-07 06:17] LABS: Anion Gap 1 mmol/L (4-12); Blood Urea Nitrogen 14 mg/dL (7-17); Calcium 8.1 mg/dL (8.4-10.2); Carbon Dioxide 24 mmol/L (22-30); Chloride 108 mmol/L (98-107); Estimated CRCL calculation 56 ml/min; Estimated Glomerular Filt Rate > 60; Glucose 104 mg/dL (65-110); Potassium 4.1 mmol/L (3.4-5.0); Sodium 133 mmol/L (137-145)
[2025-08-07] MEDS: VANCOMYCIN HCL 1,000 MG in SODIUM CHLORIDE 0.9% IV 250 ML 250 MG IVPB (06:41)
[2025-08-07 08:00] VITALS: BP 102/47; PULSE 57; RESP 16; TEMP 36.1; O2SAT 100
[2025-08-07] MEDS: ceFAZolin 2 GM in SODIUM CHLORIDE 0.9% IV 50 ML 100 ML IVPB (09:09)
[2025-08-07] MEDS: APIXABAN 2.5 MG TABLET PO (09:10)
[2025-08-07] MEDS: FERROUS SULFATE 325 MG TABLET PO (09:10)
[2025-08-07] MEDS: CHOLECALCIFEROL (VITAMIN D3) 25 MCG (1,000 UNITS) TABLET PO (09:10)
[2025-08-07] MEDS: CELECOXIB 100 MG CAPSULE PO (09:10)
[2025-08-07] MEDS: FAMOTIDINE 20 MG TABLET PO (09:10)
[2025-08-07] MEDS: SENNA/DOCUSATE SODIUM TABLET 2 TAB PO (09:11)
--- NOTE | 2025-08-07 09:54 | PM.PNORT ---
Progress Note: A&P Assessment and Plan (1) Status post total hip replacement, right: Code(s): Z96.641 - Presence of right artificial hip joint Status: Acute Assessment and Plan: patient is postop day 1 after right hip replacement. She is doing well. She did well with her physical therapy today and she was up many times last night going to the restroom. She is tolerating full weight-bearing and using the walker with 4 wheels and I have advised her to obtain a walker with front wheels and back pegs which is little bit safer the if she were to stumble has this would decrease her risk of fall. Her vital signs are stable. Her blood pressure is a little bit lower 102/46 at last reading. She does not feel lightheaded. Interestingly her heart rate remains in the upper 50s to 60 and has not increased in rate. Her preop EKG showed a heart rate of 58. She did have a negative stress test no fixed defect or reversible ischemia in ejection fraction of 65%. She is not taking any beta blockers that would suppress her heart rate. Her wound is dry and intact. No significant swelling around the hip or thigh. She is neurologically intact in the right leg. Hemoglobin this morning is 8.8. This represents acute blood loss anemia. Fortunately she is not symptomatic and I have discussed with her that if her hemoglobin were to the drop below 7 transfusion would be a consideration. Since she is not symptomatic, the likelihood of significant further drop his lower. However if she develops lightheadedness after returning home she will call us and we will have a CBC obtained to check. In the meantime she should continue to drink lots of fluids to minimize risk of lightheadedness. I have discussed with her that she had more than the average amount of bleeding from her bone. She is planning to have her left hip replaced at some point in the future. It has been bothering her since she put the meloxicam on hold and unfortunately she will likely have increased bleeding from the bone of her left hip when she has left hip replacement. She feels comfortable and would like to go home today. I reviewed with her that she must take the meloxicam. We will plan to use Celebrex 100 mg daily for 10 days total for prophylaxis against heterotopic ossification. Because of her propensity for bone bleeding we will use the lower dose. Subjective Subjective Date/Time Seen: 08/07/25 09:54 Objective Data Vital Signs Vital Signs: Vital Signs - 24 hr 08/06/25 11:29 08/06/25 11:30 08/06/25 11:45 Temperature 36.4 C L Pulse Rate 80 83 86 Respiratory Rate 11 L 17 18 Blood Pressure 132/64 131/72 135/69 Pulse Oximetry 99 99 100 Oxygen Delivery Simple Face Mask Simple Face Mask Simple Face Mask Oxygen Flow Rate 8 8 8 08/06/25 12:00 08/06/25 12:15 08/06/25 12:30 Temperature Pulse Rate 81 60 61 Respiratory Rate 16 12 Blood Pressure 126/83 130/73 123/69 Pulse Oximetry 96 93 Oxygen Delivery Room Air Room Air Room Air Oxygen Flow Rate 08/06/25 13:20 08/06/25 13:35 08/06/25 13:53 Temperature 36.3 C L 36.5 C Pulse Rate 78 57 L Respiratory Rate 16 16 Blood Pressure 132/51 L 123/60 Pulse Oximetry 98 96 93 Oxygen Delivery Room Air Oxygen Flow Rate 08/06/25 14:05 08/06/25 15:01 08/06/25 18:33 Temperature 36.6 C 36.3 C L 36.4 C L Pulse Rate 74 58 L 61 Respiratory Rate 18 18 18 Blood Pressure 117/50 L 110/53 L 135/62 Pulse Oximetry 96 100 100 Oxygen Delivery Oxygen Flow Rate 08/06/25 20:31 08/06/25 21:40 08/07/25 00:18 Temperature 36.0 C L 36.1 C L Pulse Rate 63 65 Respiratory Rate 18 18 Blood Pressure 115/54 L 115/57 L Pulse Oximetry 100 99 Oxygen Delivery Room Air Oxygen Flow Rate 08/07/25 04:50 08/07/25 07:50 08/07/25 08:00 Temperature 36.2 C L 36.1 C L Pulse Rate 62 57 L Respiratory Rate 18 16 Blood Pressure 108/42 L 102/47 L Pulse Oximetry 100 100 Oxygen Delivery Room Air Oxygen Flow Rate Intake/Output Intake/Output: Intake & Output 08/04/25 08/05/25 08/06/25 08/07/25 23:59 23:59 23:59 23:59 Intake Total 1450 1290 Output Total 10 Balance 1450 1280 Meds/Results Medications: Active Medications Generic Name Dose Route Start Last Admin Trade Name Freq PRN Reason Stop Dose Admin Acetaminophen 650 mg 08/06/25 17:00 08/07/25 09:11 Acetaminophen 325 Mg Tablet PO 650 mg Q4HR ANILA Administration Apixaban 2.5 mg 08/07/25 09:00 08/07/25 09:10 Apixaban 2.5 Mg Tablet PO 09/10/25 21:01 2.5 mg Q12HR ANILA Administration Cefdinir 300 mg 08/07/25 18:00 Cefdinir 300 Mg Capsule PO Q12H ANILA Celecoxib 100 mg 08/07/25 08:00 08/07/25 09:10 Celecoxib 100 Mg Capsule PO 100 mg DAILY@0800 ANILA Administration Famotidine 20 mg 08/06/25 21:00 08/07/25 09:10 Famotidine 20 Mg Tablet PO 20 mg Q12HR ANILA Administration Ferrous Sulfate 325 mg 08/07/25 08:00 08/07/25 09:10 Ferrous Sulfate 325 Mg Tablet PO 325 mg DAILY@0800 ANILA Administration Sodium Chloride 1,000 mls @ 125 mls/hr 08/06/25 13:04 08/07/25 09:32 Normal Saline Iv IV CONT Not Given .Q8H ANILA Morphine Sulfate 2 mg 08/06/25 13:04 Morphine Sulfate (*Crx) 4 Mg/Ml Inj IV PUSH Q2H PRN Breakthrough Pain Rated 4-6 or NPO Naloxone HCl 0.1 mg 08/06/25 13:04 Naloxone Hcl 0.4 Mg/Ml Vial IV PUSH Q2M PRN Opiate Reversal Ondansetron HCl 4 mg 08/06/25 13:04 08/06/25 20:44 Ondansetron Inj 4 Mg/2 Ml Vial IV PUSH 4 mg Q4H PRN Administration Nausea And Vomiting Oxycodone HCl 5 mg 08/06/25 17:00 08/07/25 09:11 Oxycodone Hcl (*Crx) 5 Mg Tab Ir PO 5 mg Q4HR ANILA Administration Oxycodone HCl 5 mg 08/06/25 13:04 Oxycodone Hcl (*Crx) 5 Mg Tab Ir PO Q4H PRN Pain Rated 7-10 Polyethylene Glycol 17 gm 08/07/25 09:00 08/07/25 09:10 Polyethylene Glycol 3350 17 Gm Powd.Pack PO 17 gm QAM ANILA Administration Senna/Docusate Sodium 2 tab 08/06/25 17:00 08/07/25 09:11 Senna/Docusate Sodium Tablet PO 2 tab BID ANILA Administration Vitamin D 25 mcg 08/07/25 09:00 08/07/25 09:10 Cholecalciferol (Vitamin D3) 25 Mcg (1,000 Units) Tablet PO 25 mcg DAILY ANILA Administration Radiology Results: ITS Impressions Hip/Pelvis X-Ray 08/06/25 13:08 IMPRESSION: 1. Recent right total hip arthroplasty. Intraoperative X-Ray 08/06/25 13:08 IMPRESSION: 1. Recent right total hip arthroplasty. Labs Labs: Laboratory Results - last 24 hr 08/06/25 08/07/25 18:21 05:22 WBC 8.8 8.6 RBC 3.81 L 3.13 L Hgb 10.8 L 8.8 L Hct 33.5 L 28.0 L MCV 87.9 89.5 MCH 28.3 28.1 MCHC 32.2 31.4 L RDW 13.2 13.4 Plt Count 133 L 146 L MPV 9.7 10.6 H Immature Gran % (Auto) 0.3 Neut % (Auto) 79.7 H Lymph % (Auto) 9.3 L [place] % (Auto) 10.7 H Eos % (Auto) 0.0 Baso % (Auto) 0.0 L Lymph # (Auto) 0.80 L [place] # (Auto) 0.9 H Eos # (Auto) 0.0 Baso # (Auto) 0.0 Abs Immat Gran (auto) 0.03 Absolute Neuts (auto) 6.9 H Absolute Nucleated RBC 0.000 Nucleated RBC % 0.0 % Immature Plt Fraction 3.1 Sodium 133 L Potassium 4.1 Chloride 108 H Carbon Dioxide 24 Anion Gap 1 L BUN 14 Creatinine 0.73 Estim Creat Clear Calc 56 Estimated GFR > 60 Glucose 104 Calcium 8.1 L
[2025-08-07 11:45] VITALS: BP 93/50; PULSE 70; RESP 16; TEMP 36.6; O2SAT 99
--- NOTE | 2025-08-07 12:35 | P.PNIM_ITS ---
Assessment and Plan Assessment and Plan (1) Osteoarthritis of right hip: Code(s): M16.11 - Unilateral primary osteoarthritis, right hip Status: Acute Assessment and Plan: Status post total hip replacement by Orthopedics on 08/06/2025. Patient walking with walker the bathroom. Pain controlled. Patient feels ready for discharge. DVT prophylaxis with Eliquis Pain management per Ortho but be mindful of narcotics causing soft blood pressure. Continue PT and OT Regular diet Subjective Date/time seen: 08/07/25 12:35 Interval history: 69yo female with right hip arthritis presents the hospital for a planned right anterior total hip arthroplasty by Orthopedics. Some nausea last night but feels better today. Eating okay. No chest pain or shortness of breath. Walking to the bathroom. Exam Narrative: AF ??97.8 93/50 -> 115/60 70 16 99% ra Gen - NARD Chest - CTA bilaterally, nml RR CV - RRR S1/S2 Abd - Soft, NT/ND, Positive BS Ext - No pedal edema. Right hip dressing was clean, dry and intact Neuro - Alert and oriented. ?Nonfocal exam. ? Psych - Nml mood and affect Skin - Warm and dry Objective Data Vital Signs Vital Signs: Vital Signs - 24 hr 08/06/25 13:20 08/06/25 13:35 08/06/25 13:53 Temperature 97.4 F L 97.7 F Pulse Rate 78 57 L Respiratory Rate 16 16 Blood Pressure 132/51 L 123/60 Pulse Oximetry 98 96 93 Oxygen Delivery Room Air 08/06/25 14:05 08/06/25 15:01 08/06/25 18:33 Temperature 97.8 F 97.4 F L 97.5 F L Pulse Rate 74 58 L 61 Respiratory Rate 18 18 18 Blood Pressure 117/50 L 110/53 L 135/62 Pulse Oximetry 96 100 100 Oxygen Delivery 08/06/25 20:31 08/06/25 21:40 08/07/25 00:18 Temperature 96.8 F L 97 F L Pulse Rate 63 65 Respiratory Rate 18 18 Blood Pressure 115/54 L 115/57 L Pulse Oximetry 100 99 Oxygen Delivery Room Air 08/07/25 04:50 08/07/25 07:50 08/07/25 08:00 Temperature 97.1 F L 96.9 F L Pulse Rate 62 57 L Respiratory Rate 18 16 Blood Pressure 108/42 L 102/47 L Pulse Oximetry 100 100 Oxygen Delivery Room Air 08/07/25 09:30 08/07/25 11:45 Temperature 97.8 F Pulse Rate 70 Respiratory Rate 16 Blood Pressure 93/50 L Pulse Oximetry 99 Oxygen Delivery Room Air Intake/Output Intake/Output: Intake & Output 08/04/25 08/05/25 08/06/25 08/07/25 23:59 23:59 23:59 23:59 Intake Total 1450 1290 Output Total 10 Balance 1450 1280 Meds/Results Medications: Active Medications Generic Name Dose Route Start Last Admin Trade Name Freq PRN Reason Stop Dose Admin Acetaminophen 650 mg 08/06/25 17:00 08/07/25 12:34 Acetaminophen 325 Mg Tablet PO 650 mg Q4HR ANILA Administration Apixaban 2.5 mg 08/07/25 09:00 08/07/25 09:10 Apixaban 2.5 Mg Tablet PO 09/10/25 21:01 2.5 mg Q12HR ANILA Administration Cefdinir 300 mg 08/07/25 18:00 Cefdinir 300 Mg Capsule PO Q12H ANILA Celecoxib 100 mg 08/07/25 08:00 08/07/25 09:10 Celecoxib 100 Mg Capsule PO 100 mg DAILY@0800 ANILA Administration Famotidine 20 mg 08/06/25 21:00 08/07/25 09:10 Famotidine 20 Mg Tablet PO 20 mg Q12HR ANILA Administration Ferrous Sulfate 325 mg 08/07/25 08:00 08/07/25 09:10 Ferrous Sulfate 325 Mg Tablet PO 325 mg DAILY@0800 ANILA Administration Sodium Chloride 1,000 mls @ 125 mls/hr 08/06/25 13:04 08/07/25 09:32 Normal Saline Iv IV CONT Not Given .Q8H ANILA Morphine Sulfate 2 mg 08/06/25 13:04 Morphine Sulfate (*Crx) 4 Mg/Ml Inj IV PUSH Q2H PRN Breakthrough Pain Rated 4-6 or NPO Naloxone HCl 0.1 mg 08/06/25 13:04 Naloxone Hcl 0.4 Mg/Ml Vial IV PUSH Q2M PRN Opiate Reversal Ondansetron HCl 4 mg 08/06/25 13:04 08/06/25 20:44 Ondansetron Inj 4 Mg/2 Ml Vial IV PUSH 4 mg Q4H PRN Administration Nausea And Vomiting Oxycodone HCl 5 mg 08/06/25 17:00 08/07/25 12:34 Oxycodone Hcl (*Crx) 5 Mg Tab Ir PO 5 mg Q4HR ANILA Administration Oxycodone HCl 5 mg 08/06/25 13:04 Oxycodone Hcl (*Crx) 5 Mg Tab Ir PO Q4H PRN Pain Rated 7-10 Polyethylene Glycol 17 gm 08/07/25 09:00 08/07/25 09:10 Polyethylene Glycol 3350 17 Gm Powd.Pack PO 17 gm QAM ANILA Administration Senna/Docusate Sodium 2 tab 08/06/25 17:00 08/07/25 09:11 Senna/Docusate Sodium Tablet PO 2 tab BID ANILA Administration Vitamin D 25 mcg 08/07/25 09:00 08/07/25 09:10 Cholecalciferol (Vitamin D3) 25 Mcg (1,000 Units) Tablet PO 25 mcg DAILY ANILA Administration Radiology Results: ITS Impressions Hip/Pelvis X-Ray 08/06/25 13:08 IMPRESSION: 1. Recent right total hip arthroplasty. Intraoperative X-Ray 08/06/25 13:08 IMPRESSION: 1. Recent right total hip arthroplasty. Labs Labs: Laboratory Results - last 24 hr 08/06/25 08/07/25 18:21 05:22 WBC 8.8 8.6 RBC 3.81 L 3.13 L Hgb 10.8 L 8.8 L Hct 33.5 L 28.0 L MCV 87.9 89.5 MCH 28.3 28.1 MCHC 32.2 31.4 L RDW 13.2 13.4 Plt Count 133 L 146 L MPV 9.7 10.6 H Immature Gran % (Auto) 0.3 Neut % (Auto) 79.7 H Lymph % (Auto) 9.3 L [place] % (Auto) 10.7 H Eos % (Auto) 0.0 Baso % (Auto) 0.0 L Lymph # (Auto) 0.80 L [place] # (Auto) 0.9 H Eos # (Auto) 0.0 Baso # (Auto) 0.0 Abs Immat Gran (auto) 0.03 Absolute Neuts (auto) 6.9 H Absolute Nucleated RBC 0.000 Nucleated RBC % 0.0 % Immature Plt Fraction 3.1 Sodium 133 L Potassium 4.1 Chloride 108 H Carbon Dioxide 24 Anion Gap 1 L BUN 14 Creatinine 0.73 Estim Creat Clear Calc 56 Estimated GFR > 60 Glucose 104 Calcium 8.1 L
--- NOTE | 2025-08-07 14:12 | PC.NURSE ---
Reviewed all DC instructions - dressing instructions to Right hip, and all activity care instructions with patient.
== END 2025-08-07 13:30 | disposition home or self-care (01) ==
LOC: ANHSURGERY 05:46 → ANH3MEDSUR 13:28
PROVIDERS: Physician Assistant Surgical; PCP Internal Medicine; Visit Provider Orthopaedic Surgery
PROC: (CPT 27130; principal; 2025-08-06 07:30)
DX: M16.11 Unilateral primary osteoarthritis, right hip (principal)
CPT/HCPCS: 27130; 36415; 73501; 80048; 85025; 85027; 85055; 86850; 86900; 86901; 97110; 97161; 97165; 99199; J0690; A9270; C1713; C1776; J0166; J1171; J1885; J2250; J2270; J2405; J2795; J3010; J3290; J3373; J7030; J7040; J7050; J7120